=== PATIENT | male | born 1960 | race Caucasian/White ===

== ENCOUNTER 2023-03-25 08:50 | Outpatient (CLI) | payer OTHER ==
[2023-03-25 09:30] LABS: INR-International Normal Ratio 3.6; Prothrombin Time 37.4 sec (12.0-14.7)
== END 2023-03-25 08:51 | disposition home or self-care (01) ==
LOC: BURLAB 08:50
PROVIDERS: ATTEND Internal Medicine Cardiovascular Disease
DX: Z51.81 Encounter for therapeutic drug level monitoring (principal); Z79.01 Long term (current) use of anticoagulants
CPT/HCPCS: 36415; 85610

== ENCOUNTER 2023-06-25 08:38 | Outpatient (CLI) | payer OTHER ==
[2023-06-25 09:24] LABS: INR-International Normal Ratio 3.1; Prothrombin Time 33.2 sec (12.0-14.7)
== END 2023-06-25 08:39 | disposition home or self-care (01) ==
LOC: BURLAB 08:38
PROVIDERS: ATTEND Internal Medicine Cardiovascular Disease
DX: Z51.81 Encounter for therapeutic drug level monitoring (principal); Z79.01 Long term (current) use of anticoagulants
CPT/HCPCS: 36415; 85610

== ENCOUNTER 2023-07-29 07:59 | Outpatient (CLI) | payer OTHER ==
[2023-07-29 09:08] LABS: INR-International Normal Ratio 3.5; Prothrombin Time 36.7 sec (12.0-14.7)
== END 2023-07-29 08:00 | disposition home or self-care (01) ==
LOC: BURLAB 07:59
PROVIDERS: ATTEND Internal Medicine Cardiovascular Disease
DX: I48.91 Unspecified atrial fibrillation (principal)

== ENCOUNTER 2023-09-10 08:38 | Outpatient (CLI) | payer OTHER ==
[2023-09-10 09:06] LABS: INR-International Normal Ratio 3.8; Prothrombin Time 39.1 sec (12.0-14.7)
== END 2023-09-10 08:39 | disposition home or self-care (01) ==
LOC: BURLAB 08:38
PROVIDERS: ATTEND Internal Medicine Cardiovascular Disease
DX: Z51.81 Encounter for therapeutic drug level monitoring (principal); I48.91 Unspecified atrial fibrillation; I48.0 Paroxysmal atrial fibrillation; Z79.01 Long term (current) use of anticoagulants
CPT/HCPCS: 36415; 85610

== ENCOUNTER 2023-09-23 08:48 | Outpatient (CLI) | payer OTHER ==
[2023-09-23 09:12] LABS: Prothrombin Time 23.3 sec (12.0-14.7)
== END 2023-09-23 08:49 | disposition home or self-care (01) ==
LOC: BURLAB 08:48
PROVIDERS: ATTEND Internal Medicine Cardiovascular Disease
DX: I48.0 Paroxysmal atrial fibrillation (principal)
CPT/HCPCS: 36415; 85610

== ENCOUNTER 2023-12-20 09:14 | Outpatient (CLI) | payer OTHER ==
[2023-12-20 09:41] LABS: Anion Gap 16 mmol/L (10-20); BUN (Urea Nitrogen) 33 mg/dL (8.4-25.7); Calc. Creatinine Clearance 0 mL/min (70-130); Calcium 9.3 mg/dL (7.8-10.44); Carbon Dioxide 24 mmol/L (23-31); Chloride 105 mmol/L (98-107); Estimated GFR 36; Glucose 103 mg/dL (80-115); Potassium 5.1 mmol/L (3.5-5.1); Sodium 140 mmol/L (136-145)
== END 2023-12-20 09:15 | disposition home or self-care (01) ==
LOC: BURLAB 09:14
PROVIDERS: ATTEND Internal Medicine Cardiovascular Disease
DX: N18.31 Chronic kidney disease, stage 3a (principal)
CPT/HCPCS: 36415; 80048

== ENCOUNTER 2024-03-10 08:32 | Outpatient (CLI) | payer OTHER ==
[2024-03-10 08:57] LABS: INR-International Normal Ratio 1.5; Prothrombin Time 18.3 sec (12.0-14.7)
== END 2024-03-10 08:33 | disposition home or self-care (01) ==
LOC: BURLAB 08:32
PROVIDERS: ATTEND Internal Medicine Cardiovascular Disease
DX: I48.91 Unspecified atrial fibrillation (principal)
CPT/HCPCS: 36415; 85610

== ENCOUNTER 2024-03-21 07:59 | Outpatient (CLI) | payer OTHER ==
[2024-03-21 09:11] LABS: ALT (SGPT) 37 U/L (8-55); AST (SGOT) 28 U/L (5-34); Albumin 4.3 g/dL (3.4-4.8); Alkaline Phosphatase 71 U/L (40-110); Anion Gap 15 mmol/L (10-20); BUN (Urea Nitrogen) 34 mg/dL (8.4-25.7); Bilirubin, Total 0.6 mg/dL (0.2-1.2); Calc. Creatinine Clearance 0 mL/min (70-130); Calcium 8.8 mg/dL (7.8-10.44); Carbon Dioxide 24 mmol/L (23-31); Cardiac Risk 2.8 (Less than 4.5); Chloride 104 mmol/L (98-107); Cholesterol 111 mg/dl (< 200 Desired); Estimated GFR 33; Globulin 2.8 g/dL (2.4-3.5); Glucose 107 mg/dL (80-115); HDL Cholesterol 40 mg/dL (>60 Neg Risk); LDL Cholesterol, Calculated 59 mg/dL; Potassium 4.9 mmol/L (3.5-5.1); Protein, Total 7.1 g/dL (5.8-8.1); Sodium 138 mmol/L (136-145); Triglycerides 62 mg/dL (Less than 150)
== END 2024-03-21 08:00 | disposition home or self-care (01) ==
LOC: BURLAB 07:59
PROVIDERS: ATTEND Internal Medicine Cardiovascular Disease
DX: E78.00 Pure hypercholesterolemia, unspecified (principal)
CPT/HCPCS: 36415; 80053; 80061

== ENCOUNTER 2024-05-09 08:29 | Outpatient (CLI) | payer OTHER ==
[2024-05-09 08:58] LABS: INR-International Normal Ratio 1.8; Prothrombin Time 20.5 sec (12.0-14.7)
== END 2024-05-09 08:30 | disposition home or self-care (01) ==
LOC: BURLAB 08:29
PROVIDERS: ATTEND Nurse Practitioner Family
DX: Z51.81 Encounter for therapeutic drug level monitoring (principal); Z79.01 Long term (current) use of anticoagulants
CPT/HCPCS: 36415; 85610

== ENCOUNTER 2025-07-24 15:20 | Outpatient (CLI) | payer OTHER, MEDICAID | END 2025-07-24 15:21 | disposition home or self-care (01) | LOC: BURRAD 15:20 | PROVIDERS: ATTEND Family Medicine | DX: M54.41 Lumbago with sciatica, right side (principal); M54.42 Lumbago with sciatica, left side; G89.29 Other chronic pain; M47.816 Spondylosis without myelopathy or radiculopathy, lumbar region | CPT/HCPCS: 72100 ==